=== PATIENT | female | born 1980 | race Caucasian/White ===

== ENCOUNTER 2024-04-02 19:41 | Emergency (ER) | payer OTHER ==
[2024-04-02 19:52] VITALS: BP 167/95; PULSE 78; RESP 18; TEMP 97.7; BMI 29.7
[2024-04-02] MEDS ORDERED: ACETAMINOPHEN 325 MG TABLET (FP) ONE (20:32)
[2024-04-02] MEDS ORDERED: LIDOCAINE 4% PATCH TP ONE (20:32)
[2024-04-02] MEDS ORDERED: METHOCARBAMOL 500 MG TABLET ONE (20:33)
[2024-04-02] MEDS ORDERED: IBUPROFEN 400 MG TABLET (FP) PO ONE (20:33)
[2024-04-02] MEDS: METHOCARBAMOL 500 MG TABLET PO ONE (20:36)
[2024-04-02] MEDS: ACETAMINOPHEN 325 MG TABLET (FP) PO ONE (20:36)
[2024-04-02] MEDS: IBUPROFEN 400 MG TABLET (FP) PO ONE (20:36)
[2024-04-02] MEDS: LIDOCAINE 5% TOPICAL PATCH TP ONE (20:37)
[2024-04-02] MEDS: LIDOCAINE PATCH REMOVAL MC SCH (21:13)
[2024-04-02] MEDS ORDERED: diazePAM 5 MG TABLET ONE (21:43)
[2024-04-02] MEDS: diazePAM 5 MG TABLET PO ONE (21:47)
[2024-04-02 22:23] LABS: HIV INTERPRETATION NEGATIVE (NEGATIVE)
== END 2024-04-02 21:48 | disposition home or self-care (01) ==
LOC: JER 19:41
DX: M54.50 Low back pain, unspecified (principal); G89.29 Other chronic pain
CPT/HCPCS: 36415; 87389; 99283-25

== ENCOUNTER 2024-05-31 18:41 | Emergency (ER) | payer OTHER ==
[2024-05-31 18:58] VITALS: BP 161/100; PULSE 73; RESP 18; TEMP 98; BMI 28.3
[2024-05-31] MEDS ORDERED: ACETAMINOPHEN INJECTION 100 ML IVPB ONE (20:24)
[2024-05-31] MEDS ORDERED: FAMOTIDINE 20 MG/50 ML IVPB 20 MG/50 ML MG IVPB ONE (20:24)
[2024-05-31] MEDS ORDERED: ONDANSETRON 4 MG/2 ML VIAL ONE (20:24)
[2024-05-31] MEDS: SODIUM CHLORIDE 0.9% 500 ML INFUS.BAG IV ONE (20:29)
[2024-05-31] MEDS: FAMOTIDINE 20 MG/50 ML IVPB 20 MG/50 ML MG IVPB ONE (20:30)
[2024-05-31] MEDS: ONDANSETRON 4 MG/2 ML VIAL IVPUSH ONE (20:30)
[2024-05-31] MEDS: ACETAMINOPHEN 1000 MG/100 ML BAG IVPB ONE (20:30)
[2024-05-31 20:33] LABS: EOS % 5.3 % (0-4.5); HEMATOCRIT 41.3 % (32.4-45.2); HEMOGLOBIN 14.3 GM/dL (10.7-15.3); LYMPH % 33.9 % (8-40); MCH 31.8 pg (25.7-33.7); MCHC 34.6 g/dl (32.0-36.0); MEAN PLT VOLUME 8.5 fl (7.5-11.1); MONO % 5.1 % (3.8-10.2); NEUT % 54.7 % (42.8-82.8); PLATELET COUNT 377 10^3/uL (134-434); RBC 4.49 M/mm3 (3.60-5.2); RDW 12.9 % (11.6-15.6); WHITE BLOOD COUNT 7.3 K/mm3 (4.0-10.0)
[2024-05-31 20:45] LABS: POTASSIUM 4.3 mmol/L (3.5-5.1)
[2024-05-31 20:47] LABS: BLOOD UREA NITROGEN 14.7 mg/dL (7-18)
[2024-05-31 20:48] LABS: CALCIUM 9.2 mg/dL (8.5-10.1)
[2024-05-31 20:52] LABS: CREATININE 0.8 mg/dL (0.55-1.3)
[2024-05-31 20:53] LABS: TOT PROT 7.4 g/dl (6.4-8.2)
[2024-05-31 20:54] LABS: BILIRUBIN,TOTAL 0.5 mg/dL (0.2-1)
== END 2024-05-31 21:57 | disposition home or self-care (01) ==
LOC: JERFT 18:41
PROC: 3E033GC Introduction of Other Therapeutic Substance into Peripheral Vein, Percutaneous Approach (ICD-10-PCS; principal; 2024-05-31)
PROC: 3E033NZ Introduction of Analgesics, Hypnotics, Sedatives into Peripheral Vein, Percutaneous Approach (ICD-10-PCS; 2024-05-31)
PROC: 3E033GC Introduction of Other Therapeutic Substance into Peripheral Vein, Percutaneous Approach (ICD-10-PCS; 2024-05-31)
DX: R09.81 Nasal congestion (principal); R05.9 Cough, unspecified; M79.10 Myalgia, unspecified site; R51.9 Headache, unspecified; R10.13 Epigastric pain; R11.0 Nausea; R68.83 Chills (without fever); R63.0 Anorexia; B34.9 Viral infection, unspecified; Z20.822 Contact with and (suspected) exposure to COVID-19
CPT/HCPCS: 0241U-QW; 36415; 71046-TC-FY; 80053; 83690; 84703; 85025; 87651; 99284-25; J0131

== ENCOUNTER 2024-07-03 11:50 | Emergency (ER) | payer OTHER ==
[2024-07-03 11:58] VITALS: BP 150/89; PULSE 62; RESP 16; TEMP 98.4; BMI 29.8
[2024-07-03] MEDS ORDERED: KETOROLAC TROMETHAMINE 30 MG/1 ML VIAL ONE (12:52)
[2024-07-03] MEDS ORDERED: ACETAMINOPHEN 500 MG TABLET (FP) ONE (12:53)
[2024-07-03] MEDS: KETOROLAC TROMETHAMINE 30 MG/1 ML VIAL IM ONE (13:02)
[2024-07-03] MEDS: ACETAMINOPHEN 500 MG TABLET (FP) PO ONE (13:02)
== END 2024-07-03 14:04 | disposition home or self-care (01) ==
LOC: JER 11:50 → JERFT 11:50
PROC: 3E0133Z Introduction of Anti-inflammatory into Subcutaneous Tissue, Percutaneous Approach (ICD-10-PCS; principal; 2024-07-03)
DX: R05.9 Cough, unspecified (principal); R51.9 Headache, unspecified; M79.10 Myalgia, unspecified site; J39.9 Disease of upper respiratory tract, unspecified; J02.9 Acute pharyngitis, unspecified; Z20.822 Contact with and (suspected) exposure to COVID-19
CPT/HCPCS: 0241U-QW; 96372; 99284-25